=== PATIENT | male | born 1990 | race Caucasian/White ===

== ENCOUNTER 2017-11-08 13:59 | Emergency (ER) | payer OTHER, BC ==
[2017-11-08] MEDS: ONDANSETRON (ODT) 4 MG TAB ODT (18:03)
[2017-11-08] MEDS: KETOROLAC 30 MG INJ IM (18:04)
== END 2017-11-08 19:24 | disposition home or self-care (01) ==
LOC: FTE 19:24
DX: R19.7 Diarrhea, unspecified (principal); R10.12 Left upper quadrant pain; R10.11 Right upper quadrant pain; R11.2 Nausea with vomiting, unspecified
CPT/HCPCS: 96372; 99284-25